=== PATIENT | male | born 1970 | race Caucasian/White ===

== ENCOUNTER 2017-01-22 15:10 | Emergency (ER) | payer OTHER ==
[2017-01-22 19:27] LABS: HEMOGLOBIN 15.6 gm/dl (14.0-17.5); RED BLOOD COUNT 4.84 M/UL (4.20-5.50); WHITE BLOOD COUNT 8.2 K/UL (4.5-11.0)
[2017-01-22 20:00] LABS: BUN/CREATININE RATIO 14 (0-10)
== END 2017-01-22 22:37 | disposition left against medical advice (07) ==
LOC: ER1 15:10
PROVIDERS: Physician Assistant
DX: R20.0 Anesthesia of skin (principal); R42 Dizziness and giddiness; R51 Headache; E07.9 Disorder of thyroid, unspecified; Z79.899 Other long term (current) drug therapy
CPT/HCPCS: 36415; 70450; 71010; 72125; 80053; 82550; 82553; 83874; 84439; 84443; 84484; 85025; 93005; 99284

== ENCOUNTER 2021-06-21 11:24 | Emergency (ER) | payer SELFPAY ==
[~2021-06-21] VITALS: Ht 182.9 cm; Wt 90.7 kg
== END 2021-06-21 14:13 | disposition home or self-care (01) ==
LOC: ER1 11:24
DX: U07.1 COVID-19 (principal); E07.9 Disorder of thyroid, unspecified; Z23 Encounter for immunization
CPT/HCPCS: 99283; M0243